=== PATIENT | female | born 1965 | race Caucasian/White ===

== ENCOUNTER 2020-11-25 05:34 | Day surgery (SDC) | payer OTHER ==
[2020-11-20 14:59] VITALS: BMI 25.3
[2020-11-25 08:19] VITALS: TEMP 96.6
[2020-11-25 09:45] VITALS: BP 120/66; PULSE 51
== END 2020-11-25 09:23 | disposition home or self-care (01) ==
LOC: JASU-ENDO 05:34
PROVIDERS: ATTEND Internal Medicine Gastroenterology
PROC: 0DJD8ZZ Inspection of Lower Intestinal Tract, Via Natural or Artificial Opening Endoscopic (ICD-10-PCS; principal; 2020-11-25 08:00)
DX: Z12.11 Encounter for screening for malignant neoplasm of colon (principal)
CPT/HCPCS: 81025